=== PATIENT | male | born 1955 | race Caucasian/White ===

== ENCOUNTER 2019-08-14 06:30 | Outpatient (CLI) | payer OTHER ==
[2019-08-14 14:58] VITALS: BMI 26.4
[2019-08-14 16:03] LABS: #Basophils 0.2 thou/uL (0.0-0.2); #Eosinphils 0.7 thou/uL (0.0-0.7); #Lymphocytes 3.5 thou/uL (1.20-3.40); #Monocytes 1.1 thou/uL (0.11-0.59); #Neutrophils 8.5 thou/uL (1.40-6.50); %Basophils 1.4 % (0.0-1.0); %Eosinophils 4.9 % (0.0-10.0); %Lymphocytes 25.1 % (21.0-51.0); %Monocytes 7.6 % (0.0-10.0); Hemoglobin 13.9 g/dL (14.0-18.0); Mean Corpuscular HGB CONC 32.5 g/dL (32.0-36.0); Mean Corpuscular Hemoglobin 28.2 pg (27.0-31.0); Mean Corpuscular Volume 86.7 fL (78.0-98.0); Mean Platelet Volume 9.1 fL (7.4-10.4); Platelet Count 228 thou/uL (130-400); RBC Distribution Width 14.9 % (11.5-14.5); Red Blood Cell (RBC) Count 4.93 mill/uL (4.70-6.10); White Blood Cell (WBC) Count 13.9 thou/uL (4.8-10.8)
[2019-08-14 16:13] LABS: Bacteria/HPF 4+ HPF (None Seen); Bilirubin Negative (Negative); Blood, Urine 2+ (Negative); Clarity Extra Turbid (Clear); Glucose, Urine (Dipstick) Normal (Negative); Leukocyte 500 Leu/uL (Negative); Nitrite 1+ (Negative); Protein, Urine (Dipstick) 200 mg/dL (Neg-Trace); Squamous Epithelial None Seen HPF (0-3); Urobilinogen Normal mg/dL (Less than 2); WBC/HPF Greater than 50 HPF (0-3)
[2019-08-14 16:21] LABS: Anion Gap 14 mmol/L (10-20); BUN (Urea Nitrogen) 36 mg/dL (8.4-25.7); Calc. Creatinine Clearance 48 mL/min (70-130); Carbon Dioxide 31 mmol/L (23-31); Chloride 99 mmol/L (98-107); Estimated GFR-MDRD 36; Glucose 99 mg/dL (80-115); Potassium 4.2 mmol/L (3.5-5.1); Sodium 140 mmol/L (136-145)
[2019-08-15 19:52] LABS: SARS-CoV-2 MS2 Positive; SARS-CoV-2 N Gene Negative; SARS-CoV-2 S Gene Negative; SARS-CoV-2 orf1ab Negative
--- NOTE | 2019-08-21 23:28 | EKG ---
Test Reason : Blood Pressure : / mmHG Vent. Rate : 063 BPM Atrial Rate : 063 BPM P-R Int : 162 ms QRS Dur : 164 ms QT Int : 494 ms P-R-T Axes : 003 101 056 degrees QTc Int : 505 ms Sinus rhythm with occasional Premature ventricular complexes Right bundle branch block Abnormal ECG No previous ECGs available Confirmed by Gilma RODRIGUEZ ([id number]) on 08/21/2019 11:28:09 PM Referred By: [place] Confirmed By:Gilma RODRIGUEZ
== END 2019-08-14 06:31 | disposition home or self-care (01) ==
LOC: LABBT 06:30
PROVIDERS: ATTEND Urology
DX: Z01.818 Encounter for other preprocedural examination (principal); Z11.59 Encounter for screening for other viral diseases; N40.1 Benign prostatic hyperplasia with lower urinary tract symptoms
CPT/HCPCS: 80048; 81001; 85025; 87635; 93005; 93010; U0003

== ENCOUNTER 2019-08-18 11:11 | Day surgery (SDC) | payer OTHER ==
[~2019-08-18 11:11] MED LIST: PROPOFOL 200 MG/20 ML VIAL ONE
[2019-08-18] MEDS ORDERED: Levofloxacin 500 mg/D5W 100 ml Premix Bag ONE (11:45)
[2019-08-18] MEDS ORDERED: Ketorolac Tromethamine 30 MG/ML VIAL ONE (12:48)
[2019-08-18] MEDS ORDERED: Oxybutynin 5 MG TAB ONE (12:48)
[2019-08-18] MEDS ORDERED: Phenazopyridine HCl 97.5 MG TABLET ONE (12:49)
--- NOTE | 2019-08-18 18:57 | OP ---
DATE OF PROCEDURE: 08/18/2019 PREOPERATIVE DIAGNOSIS: Urinary retention, enlarged prostate with lower urinary tract symptoms. POSTOPERATIVE DIAGNOSES: 1. Urinary retention, enlarged prostate with lower urinary tract symptoms. 2. Urethral stricture-meatal stenosis. PROCEDURE PERFORMED: Cystoscopy with placement of UroLift device x7 implants, dilation of urethral stricture. ANESTHESIA: TIVA. COMPLICATIONS: None. BLOOD LOSS: Minimal. SPECIMEN: None. DESCRIPTION OF PROCEDURE: After informed consent, the patient was taken to the operating room, transferred to the table on his own power. Anesthesia was established. Time-out was performed, showing the correct patient, site, and procedure. Preoperative antibiotics were administered. He was prepped and draped in the lithotomy position. The 20-Portuguese rigid cystoscope was advanced through the urethra after performing dilation of the meatus with Leobardo sounds from 16 to 24-Portuguese. The remainder of the urethra was normal in appearance and caliber. The prostatic urethra was examined noting large coapting lateral lobes with a mild median bar without median lobe. The bladder was entered and systematically examined noting moderate trabeculation without mucosal abnormalities. Both ureters were normal in appearance. The cystoscopy bridge was replaced with the UroLift delivery device. The first treatment site was the patient's left side approximately 2 cm distal to the bladder neck. The distal tip of the delivery device was then angled laterally approximately 20 degrees of this position to compress the lateral lobe. The trigger was pulled thereby deploying a needle containing the implant through the prostate. The needle was then retracted, allowing one end of the implant to be delivered to the capsular surface of the prostate. The implant was then tensioned to assure capsular seating and removal of slack monofilament. The device was then angled back toward midline and slowly advanced proximally about 3 to 4 mm until cystoscopic verification of the monofilament being centered in the delivery bay. The urethral end piece was then affixed to the monofilament, thereby tailoring the size of the implant. Excess filament was then severed. The delivery device was then readvanced into the bladder. The same procedure was then repeated on the patient's right side near the bladder neck deploying the second unit. Two additional implants, third and fourth were delivered just proximal to the verumontanum, again one on the right and one on the left side of the prostate following the same technique. The fifth implant was placed on the patient's left side in the mid prostate. At this point, there was still very minimal obstruction from the mid right prostate and I attempted with the sixth and seventh implants to address this. However, both resulted in bone strikes, at which point on further evaluation, I determined that further attempts here were unlikely to be beneficial and that his channel was more than sufficient for excellent outcome. The scope was then withdrawn after draining the bladder. He was awoken from anesthesia, transferred back to his hospital bed and taken to PACU in stable condition, where he will discharge home upon recovery. Job ID: [id number]
== END 2019-08-18 17:47 | disposition home or self-care (01) ==
LOC: SDC 11:11
PROVIDERS: ATTEND Urology
PROC: 0T7D8DZ Dilation of Urethra with Intraluminal Device, Via Natural or Artificial Opening Endoscopic (ICD-10-PCS; principal; 2019-08-18)
DX: N40.1 Benign prostatic hyperplasia with lower urinary tract symptoms (principal); R33.8 Other retention of urine; N35.911 Unspecified urethral stricture, male, meatal; I10 Essential (primary) hypertension; E07.9 Disorder of thyroid, unspecified; Z79.899 Other long term (current) drug therapy; Z87.891 Personal history of nicotine dependence
CPT/HCPCS: 51798; C1889; J1885; J1956; J2704

== ENCOUNTER 2021-09-22 23:03 | Inpatient (IN) | payer BC, MEDICARE ==
[2021-09-23 07:26] LABS: Hemoglobin 14.3 g/dL (14.0-18.0); Mean Corpuscular Hemoglobin 28.3 pg (27.0-31.0); Mean Platelet Volume 7.8 fL (7.4-10.4); Platelet Count 227 thou/uL (130-400); RBC Distribution Width 15.2 % (11.5-14.5); Red Blood Cell (RBC) Count 5.06 mill/uL (4.70-6.10); White Blood Cell (WBC) Count 15.2 thou/uL (4.8-10.8)
[2021-09-23 07:47] LABS: Albumin 3.3 g/dL (3.4-4.8); Anion Gap 19 mmol/L (10-20); BUN (Urea Nitrogen) 112 mg/dL (8.4-25.7); BUN/Creatinine Ratio 19.86; Calc. Creatinine Clearance 0 mL/min (70-130); Calcium 8.6 mg/dL (7.8-10.44); Carbon Dioxide 19 mmol/L (23-31); Chloride 104 mmol/L (98-107); Estimated GFR 10; Glucose 93 mg/dL (80-115); Phosphorus 4.6 mg/dL (2.3-4.7); Potassium 4.7 mmol/L (3.5-5.1); Sodium 137 mmol/L (136-145); Uric Acid 11.6 mg/dL (3.5-7.2)
[2021-09-23 08:35] VITALS: BMI 25.0
[2021-09-23] MEDS ORDERED: HYDROcodone/Acetaminophen 5/325 mg Tablet PO PRN (10:06)
[2021-09-23] MEDS ORDERED: Ondansetron ODT 4 MG TAB PO PRN (10:06)
[2021-09-23] MEDS: Sodium Bicarbonate 50 MEQ in Sodium Chloride 0.45% 1,000 ML IV SCH ×2 (10:42→16:11)
[2021-09-23] MEDS ORDERED: RASBURICASE IVPB SCH (11:30)
[2021-09-23] MEDS ORDERED: SODIUM CHLORIDE 0.9% IVPB SCH (11:30)
[2021-09-23 14:05] LABS: Albumin 3.1 g/dL (3.4-4.8); Anion Gap 16 mmol/L (10-20); BUN (Urea Nitrogen) 107 mg/dL (8.4-25.7); BUN/Creatinine Ratio 20.82; Calc. Creatinine Clearance 15 mL/min (70-130); Calcium 8.7 mg/dL (7.8-10.44); Carbon Dioxide 24 mmol/L (23-31); Chloride 103 mmol/L (98-107); Estimated GFR 12; Glucose 153 mg/dL (80-115); Phosphorus 4.1 mg/dL (2.3-4.7); Potassium 4.5 mmol/L (3.5-5.1); Sodium 138 mmol/L (136-145); Uric Acid 5.6 mg/dL (3.5-7.2)
[2021-09-23] MEDS: Heparin 5,000 UNITS/ML VIAL SC SCH ×2 (16:12→20:49)
[2021-09-24] MEDS: Sodium Bicarbonate 50 MEQ in Sodium Chloride 0.45% 1,000 ML IV SCH ×2 (00:20→09:35)
[2021-09-24 07:04] LABS: Phosphorus 3.9 mg/dL (2.3-4.7)
[2021-09-24 07:32] LABS: Anion Gap 15 mmol/L (10-20); BUN (Urea Nitrogen) 98 mg/dL (8.4-25.7); Calc. Creatinine Clearance 17 mL/min (70-130); Calcium 8.3 mg/dL (7.8-10.44); Carbon Dioxide 26 mmol/L (23-31); Chloride 104 mmol/L (98-107); Estimated GFR 14; Glucose 98 mg/dL (80-115); Potassium 4.2 mmol/L (3.5-5.1); Sodium 141 mmol/L (136-145)
[2021-09-24] MEDS: Heparin 5,000 UNITS/ML VIAL SC SCH ×3 (08:46→20:27)
[2021-09-24] MEDS: Febuxostat 40 MG TAB PO SCH (09:35)
[2021-09-25] MEDS: Sodium Bicarbonate 50 MEQ in Sodium Chloride 0.45% 1,000 ML IV SCH ×3 (02:17→18:35)
[2021-09-25 06:10] LABS: Hemoglobin 11.9 g/dL (14.0-18.0); Mean Corpuscular HGB CONC 33.9 g/dL (32.0-36.0); Mean Corpuscular Hemoglobin 29.3 pg (27.0-31.0); Mean Corpuscular Volume 86.3 fL (78.0-98.0); Platelet Count 190 thou/uL (130-400); RBC Distribution Width 14.8 % (11.5-14.5); Red Blood Cell (RBC) Count 4.07 mill/uL (4.70-6.10); White Blood Cell (WBC) Count 10.8 thou/uL (4.8-10.8)
[2021-09-25 06:34] LABS: Albumin 2.8 g/dL (3.4-4.8); Anion Gap 14 mmol/L (10-20); BUN (Urea Nitrogen) 73 mg/dL (8.4-25.7); BUN/Creatinine Ratio 22.19; Calc. Creatinine Clearance 24 mL/min (70-130); Calcium 8.3 mg/dL (7.8-10.44); Carbon Dioxide 28 mmol/L (23-31); Estimated GFR 20; Glucose 99 mg/dL (80-115); Phosphorus 3.2 mg/dL (2.3-4.7); Potassium 3.8 mmol/L (3.5-5.1); Sodium 142 mmol/L (136-145)
[2021-09-25 06:40] LABS: Chloride 104 mmol/L (98-107)
[2021-09-25] MEDS: Heparin 5,000 UNITS/ML VIAL SC SCH ×3 (08:58→20:04)
[2021-09-25] MEDS: Febuxostat 40 MG TAB PO SCH (08:58)
[2021-09-25] MEDS ORDERED: predniSONE 20 MG TAB PO SCH (13:30)
[2021-09-26] MEDS: Sodium Bicarbonate 50 MEQ in Sodium Chloride 0.45% 1,000 ML IV SCH (03:30)
[2021-09-26 06:20] LABS: Hemoglobin 10.8 g/dL (14.0-18.0); Mean Corpuscular Volume 87.6 fL (78.0-98.0); Mean Platelet Volume 7.8 fL (7.4-10.4); Platelet Count 194 thou/uL (130-400); RBC Distribution Width 14.7 % (11.5-14.5); Red Blood Cell (RBC) Count 3.84 mill/uL (4.70-6.10); White Blood Cell (WBC) Count 7.8 thou/uL (4.8-10.8)
[2021-09-26 06:36] LABS: Albumin 2.8 g/dL (3.4-4.8); Anion Gap 12 mmol/L (10-20); BUN (Urea Nitrogen) 55 mg/dL (8.4-25.7); BUN/Creatinine Ratio 20.07; Calc. Creatinine Clearance 28 mL/min (70-130); Calcium 7.9 mg/dL (7.8-10.44); Carbon Dioxide 29 mmol/L (23-31); Chloride 101 mmol/L (98-107); Estimated GFR 25; Glucose 126 mg/dL (80-115); Phosphorus 3.2 mg/dL (2.3-4.7); Potassium 3.4 mmol/L (3.5-5.1); Sodium 139 mmol/L (136-145)
[2021-09-26 06:58] LABS: Magnesium 1.4 mg/dL (1.6-2.6)
[2021-09-26] MEDS ORDERED: Magnesium Sulfate In Water 4 GM in Premix Bag 1 BAG IVPB SCH (07:00)
[2021-09-26] MEDS ORDERED: Potassium Chloride 20 MEQ TAB PO SCH (07:30)
[2021-09-26] MEDS ORDERED: predniSONE 20 MG TAB PO SCH (08:00)
[2021-09-26 08:09] VITALS: BP 122/75; TEMP 97.9
[2021-09-26] MEDS: Heparin 5,000 UNITS/ML VIAL SC SCH ×2 (08:17→15:04)
[2021-09-26] MEDS: Febuxostat 40 MG TAB PO SCH (08:17)
== END 2021-09-26 15:13 | disposition home or self-care (01) | DRG 683 ==
LOC: T4-A 23:03
PROVIDERS: ADMIT Internal Medicine; ATTEND Internal Medicine
DX: E88.3 Tumor lysis syndrome (principal); E87.2 Acidosis; N17.9 Acute kidney failure, unspecified; Z20.822 Contact with and (suspected) exposure to COVID-19; E79.0 Hyperuricemia without signs of inflammatory arthritis and tophaceous disease; I95.2 Hypotension due to drugs; E86.0 Dehydration; M10.9 Gout, unspecified; T45.1X5A Adverse effect of antineoplastic and immunosuppressive drugs, initial encounter; C73 Malignant neoplasm of thyroid gland; E87.6 Hypokalemia; E83.42 Hypomagnesemia; Z79.899 Other long term (current) drug therapy
CPT/HCPCS: 36415; 80048; 80069; 83735; 84100; 84550; 85027; J1644; J2783; J3475; J7512